=== PATIENT | female | born 1980 | race Caucasian/White ===

== ENCOUNTER 2016-10-29 19:10 | Outpatient (CLI) | payer OTHER ==
[~2016-10-29] VITALS: Ht 167.6 cm; Wt 80.0 kg
[2016-10-29 19:20] VITALS: BP 130/83
[2016-10-30] MEDS ORDERED: PRENTAB55 PO (04:33)
[2016-10-30] MEDS ORDERED: COLA100C PO (04:33)
== END 2016-10-29 20:30 | disposition home or self-care (01) ==
LOC: M LDO 19:10
PROVIDERS: ATTEND Obstetrics & Gynecology
DX: O47.1 False labor at or after 37 completed weeks of gestation (principal); O09.523 Supervision of elderly multigravida, third trimester; Z3A.40 40 weeks gestation of pregnancy

== ENCOUNTER 2016-10-30 04:10 | Inpatient (IN) | payer OTHER ==
[2016-10-30] VITALS (13 sets, daily range): BP systolic 112–131; BP diastolic 61–75
[~2016-10-30] VITALS: Ht 167.6 cm; Wt 80.0 kg
[2016-10-30] MEDS ORDERED: LR 1,000 ML IV SCH ×2 (04:29→07:07)
[2016-10-30] MEDS ORDERED: PRENTAB55 PO (04:33)
[2016-10-30] MEDS ORDERED: COLA100C PO (04:33)
[2016-10-30 04:37] LABS: MEAN CORPUSCULAR HEMOGLOBIN 30.6 pg (27.0-33.0); MEAN CORPUSCULAR HGB CONC 32.9 g/dl (32.0-36.5); MEAN CORPUSCULAR VOLUME 92.9 fl (80.0-96.0); RED CELL DISTRIBUTION WIDTH 14.1 % (11.5-14.5); WHITE BLOOD COUNT 17.3 K/mm3 (4.0-10.0)
--- NOTE | 2016-10-30 04:39 | HPEPDOC ---
Obstetrical History & Physical General Date of Admission Oct 30, 2016 at 04:20 History of Present Illness 36 y/o at 41_0 with painful reg ctx's, was seen earlier in the shift and 2- 3 cm. Now with worsening pain and increasing freq. No LOF/VB. Pos FM. 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 Past Medical History Medical History asthma-well controlled seasonal allergies PSH: endometriosis on 2000 laparoscopy also remote biopsy of the bladder that showed cystitis Family History Significant Family History: No pertinent family hx Social History Marital Status: Other (boyfriend present) Family situation: Spouse/partner home Psychosocial History: No pertinent psych hx * Smoker: non-smoker Alcohol: denies Drugs: denies Abuse Violence Screening Have you been hit/kicked/slapp: No Have you been sexually assault: No Imunizations Tdap status: current Influenza Status: current Physical Examination Physical Examination GENERAL: Alert and oriented times three. FETUS: vertex (VTX) by sterile vaginal examination (SVE) EXTREMITIES: No edema. Pertinent Laboratoy Data Blood Type: A+ RBC Antibody Screen: Negative HIV: Negative Hepatitis B: Negative Hepatitis C: Unknown Rapid Plasma Reagin: Nonreactive Rubella: Immune Varicella: Immune Chlamydia/Gonorrhea: Negative Group B Streptococcus: Negative Quad Screen Test: Declined Cystic Fibrosis: Negative Glucose Tolerance Test: 134 Anatomy Ultrasound Ultrasound Date: Jul 02, 2016 Placenta Location: Anterior Normal Anatomy: Yes Placenta Previa: No Steroid Therapy Steroid Therapy: No Vaginal Examination Dilation: 6 cm Effacement: 80+% Station: -1, 0 Cervical Consistency: Soft Cervical Position: Anterior Presentation: Cephalic presentation Assessment Variability: Moderate Accelerations: Positive Decelerations: None Tocometer Frequency: regular Strength: palpated as strong Assessment/Plan Assessment Presents to Labor and Delivery (L&D) with strong reg ctx's and dx'd with labor. 41 wks. Plan Admit and orient. 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 Diet: clears Group B Streptococcus (GBS) [negative]. Labs and intravenous (IV) per unit protocol. Counseled on possible labor complications Lactated Ringers (LR): Bolus then 125 mL/hr. Epidural soon Anticipate [normal spontaneous delivery ()]. C-S as appropriate. SESSIONS,OTTO Blank MD Oct 30, 2016 04:39
[2016-10-30] MEDS ORDERED: FENTANYL 2MCG/ML ROPIVACAINE 0.2% NACL 250 ML CADD As Ordered ONE (04:51)
[2016-10-30] MEDS ORDERED: OXYTOCIN 30 UNITS IN 0.9% NaCl 500ML IV BAG (J2590) As Ordered ONE ×2 (06:18→08:30)
[2016-10-30] MEDS ORDERED: OXYTOCIN DRIP 30 UNITS in APPROPRIATE DILUENT 1 EA IV SCH ×2 (07:15→07:54)
[2016-10-30] MEDS ORDERED: EPIDURAL COMMENT XX SCH (07:30)
[2016-10-30] MEDS ORDERED: LACTATED RINGER'S 1000 ML IV PRN (07:30)
[2016-10-30] MEDS ORDERED: ONDANSETRON 4MG/2ML VIAL (J2405) IV PRN (07:30)
[2016-10-30] MEDS ORDERED: REFRIGERATOR IV KEYS XX PRN (07:30)
[2016-10-30] MEDS ORDERED: EPIDURAL/PCA KEYS XX PRN (07:30)
[2016-10-30] MEDS ORDERED: ePHEDrine SULFATE 25 MG/5 ML(5MG/ML) SYRINGE IV PRN (07:30)
[2016-10-30] MEDS ORDERED: NALOXONE INJ 0.4 MG/1 ML VIAL (J2310) IV PRN (07:30)
[2016-10-30] MEDS ORDERED: diphenhydrAMINE INJ 50MG/ML VIAL (J1200) IV PRN (07:30)
[2016-10-30] MEDS ORDERED: FENTANYL/ROPIVACAINE/NACL CADD 250 ML EPIDURAL SCH (07:30)
[2016-10-30] MEDS ORDERED: DIBUCAINE 1% OINTMENT 30GM TOP PRN (08:00)
[2016-10-30] MEDS ORDERED: MEASLES,MUMPS,RUBELLA VACCINE INJ (MMR-II) (90707) SC SCH (08:00)
[2016-10-30] MEDS ORDERED: METOCLOPRAMIDE INJ 10MG/2ML VIAL (J2765) IV PRN (08:00)
[2016-10-30] MEDS ORDERED: RHOGAM 300 MCG (1500 IU) INJ (J2790) IM SCH (08:00)
--- NOTE | 2016-10-30 08:00 | DNPDOC ---
Delivery Note Delivery Note DATE OF DELIVERY: Oct 30, 2016 at 04:20 PREDELIVERY DIAGNOSIS: [41 weeks' gestation and labor. POST DELIVERY DIAGNOSIS: Delivered. PROCEDURE: [Spontaneous vaginal delivery ADULT EDUCATOR: [Sessions] ANESTHESIA: [epidural]. ESTIMATED BLOOD LOSS: [400] mL. FINDINGS: [7] pound [8] ounce [female] infant, Score [8]/[9] DELIVERY SUMMARY: Pushed very well but had a tight inner perineal band, with mod'd Ritgen, easily del'd the vtx and no delay of the shoulders. To mother's abd with spont cry and good tone. Cord C/C by FOB. Plac intact with slight traction and fundal massage. Pit going wide open, fundus firm. Small lac bleeding so repaired with 3-0 vicryl at the upper right inner labia. Also a 1st degr perineal lac repaired with the same. Good cosmesis/hemostasis. GBS neg. Nor for PP BC. Plan to breast feed. Sessions SESSIONS,OTTO Blank MD Oct 30, 2016 08:00
[2016-10-30] MEDS: PRENATAL VITAMIN TAB PO SCH (09:00)
[2016-10-30] MEDS: DOCUSATE SODIUM 100 MG CAP PO SCH ×2 (09:00→20:42)
[2016-10-30] MEDS: ACETAMINOPHEN TAB 650MG DOSE (2X325MG) PO PRN ×2 (11:04→20:43)
[2016-10-30] MEDS: IBUPROFEN 800 MG TAB PO PRN (17:53)
[2016-10-31] MEDS: IBUPROFEN 800 MG TAB PO PRN ×2 (03:03→19:06)
[2016-10-31 06:05] VITALS: BP 119/84
[2016-10-31] MEDS: PRENATAL VITAMIN TAB PO SCH (09:13)
[2016-10-31] MEDS: DOCUSATE SODIUM 100 MG CAP PO SCH ×2 (09:13→20:57)
--- NOTE | 2016-10-31 11:11 | IPN ---
DATE: 10/31/2016 day #1. This lady is a 36-year-old 3 now para 2, had a induction of labor for late term gestation, spontaneous vaginal delivery of female infant 7 pounds 8 ounces 3394 grams of 8 and 9 and 1 and 5 minutes respectively. Her hemoglobin was 13.0, hematocrit 39.5 and platelets are 219. Her blood pressures today are 119/84, respirations 15, pulse 83 and temperature 97.7. We discussed phlebitis, cystitis, mastitis, metritis and cellulitis, diet, excise, pain management, perineal, breast and wound care. She is requesting Nor-QD as a method of control. Will have a 6-week checkup. PLAN: Discharge for tomorrow morning.
[2016-10-31 17:57] VITALS: BP 114/71
[2016-11-01 06:05] VITALS: BP 130/58
[2016-11-01] MEDS: PRENATAL VITAMIN TAB PO SCH (09:16)
[2016-11-01] MEDS: DOCUSATE SODIUM 100 MG CAP PO SCH (09:17)
[2016-11-01] MEDS: IBUPROFEN 800 MG TAB PO PRN (09:17)
--- NOTE | 2016-11-01 09:59 | IPNPDOC ---
Text Note Date of Service The patient was seen on 11/01/16 at 09:58. NOTE North is a 36yo doing well on PPD 2 s/p uncomplicated . She is . Lochia normal, spontaneously voiding and ambulating without difficulty. Tolerating regular diet. Denies f/c/n/v/SOB/CP/HANLEY/abdominal pain. Vitals wnl, afebrile Exam: General: WDWN, NAD, resting comfortably Cardiac: S1S2 present, no murmur Lungs: CTAB without wheeze/crackles Abdomen: soft, NTTP, fundus firm u-2cm Extremities: no tenderness of calves bilaterally Assessment: North is a 36yo doing well on PPD 2 s/p uncomplicated . Meeting all milestones. No e/o infection, hemodynamically stable. Plan: -discharge to home with routine follow-up for 6wk PP visit -home meds already given from clinic stock -minipill for contraception Dr. Zeeshan Ca MD [place] ANNETTE VS,Kayli, I+O VSKayli, I+O Vital Signs Date Time Temp Pulse Resp B/P Pulse Ox O2 Delivery O2 Flow Rate FiO2 11/01/16 06:05 97.3 63 18 130/58 97 Room Air ZEESHAN CA MD Nov 01, 2016 09:59
[2016-11-01] MEDS ORDERED: ACET50TA PO (10:18)
[2016-11-01] MEDS ORDERED: IBUP-1114 PO (10:19)
[2016-11-01] MEDS ORDERED: NUPE1OIN2 TOP (10:21)
== END 2016-11-01 12:05 | disposition home or self-care (01) | DRG 775 ==
LOC: M LDO 04:10 → M LDI 04:20 → M OBS 10:45
PROVIDERS: ADMIT Obstetrics & Gynecology; ATTEND Obstetrics & Gynecology
PROC: 10E0XZZ Delivery of Products of Conception, External Approach (ICD-10-PCS; principal; 2016-10-30)
DX: O48.0 Post-term pregnancy (principal); Z37.0 Single live birth; Z3A.41 41 weeks gestation of pregnancy